=== PATIENT | male | born 1985 | race Caucasian/White ===

== ENCOUNTER 2021-10-11 13:19 | Emergency (ER) | payer MEDICAID ==
[~2021-10-11] VITALS: Ht 170.2 cm; Wt 90.7 kg
[2021-10-11] MEDS ORDERED: NEOMY/BACITRA/POLYMYXIN B OINT UD PACKET TP ONE ×2 (13:30→13:34)
[2021-10-11] MEDS ORDERED: TDAP DIPH,PERTUSS,TET VAC/PF 0.5 ML DISP.SYRIN IM ONE ×2 (13:30→13:32)
--- NOTE | 2021-10-11 13:42 | NUR ---
PT IS IN ROOM #1B. DR CALDERON EVALUATED THE PT.
[2021-10-11] MEDS ORDERED: CYCL5TAB PO ×2 (14:23→14:31)
[2021-10-11] MEDS ORDERED: IBUP-1955 PO ×2 (14:23→14:31)
--- NOTE | 2021-10-11 15:17 | NUR ---
PT WAS D/D'd TO HOME. D/C INSTRUCTIONS GIVEN TO THE PT BY DR CALDERON.
[2021-10-11 15:19] VITALS: BP 136/85
== END 2021-10-11 15:29 | disposition home or self-care (01) ==
LOC: ER 13:19
DX: R07.89 Other chest pain (principal); M25.511 Pain in right shoulder; S50.311A Abrasion of right elbow, initial encounter; V59.88XA Occupant (driver) (passenger) of pick-up truck or van injured in other specified transport accidents, initial encounter; Y93.89 Activity, other specified; Y92.89 Other specified places as the place of occurrence of the external cause; R03.0 Elevated blood-pressure reading, without diagnosis of hypertension
CPT/HCPCS: 71045; 90715; A4663